=== PATIENT | female | born 1985 | race Caucasian/White ===

== ENCOUNTER 2020-07-23 06:50 | Inpatient (IN) | payer OTHER ==
[2020-07-23] MEDS ORDERED: MAGNESIUM 4GM/H20 - 4 GM/100 ML IVPB IVPB ONE (07:35)
[2020-07-23] MEDS ORDERED: MAGNESIUM SULFATE 20GM/500ML - 20 GM/500 ML INFUS.BAG ONE (07:35)
[2020-07-23] MEDS ORDERED: DEXTROSE 5%-LACTATED RINGERS 1,000 ML IV SCH (07:45)
[2020-07-23] MEDS ORDERED: MAGNESIUM 4GM/H20 - 4 GM/100 ML IVPB IVPB SCH (07:45)
[2020-07-23] MEDS ORDERED: MAGNESIUM SULFATE 20GM/500ML - 20 GM/500 ML INFUS.BAG IVPB SCH (07:45)
[2020-07-23] MEDS ORDERED: ACETAMINOPHEN 1000 MG/100 ML VIAL (NON FORMULARY) IVPB PRN (07:46)
[2020-07-23] MEDS ORDERED: AMPICILLIN - 2 GM in SODIUM CHLORIDE 100 ML IVPB ONE (07:47)
[2020-07-23] MEDS ORDERED: AMPICILLIN SODIUM 2 GM VIAL ONE (08:00)
[2020-07-23 08:17] VITALS: BMI 30.9
[2020-07-23 09:10] LABS: BASO % 0.1 % (0-2.0); EOS % 0.1 % (0-4.5); HEMATOCRIT 31.8 % (32.4-45.2); HEMOGLOBIN 10.5 GM/dL (10.7-15.3); LYMPH % 5.7 % (8-40); MCH 29.4 pg (25.7-33.7); MEAN CELL VOLUME 89.2 fl (80-96); MONO % 3.7 % (3.8-10.2); NEUT % 90.4 % (42.8-82.8); PLATELET COUNT 352 K/MM3 (134-434); RBC 3.57 M/mm3 (3.60-5.2); RDW 13.1 % (11.6-15.6); WHITE BLOOD COUNT 17.3 K/mm3 (4.0-10.0)
[2020-07-23 09:18] LABS: INR 0.97 (0.83-1.09)
[2020-07-23 09:22] LABS: ACTIVATED PTT 30.1 SECONDS (25.2-36.5)
[2020-07-23 09:32] LABS: POTASSIUM 3.5 mmol/L (3.5-5.1)
[2020-07-23 09:33] LABS: CALCIUM 8.4 mg/dL (8.5-10.1)
[2020-07-23 09:34] LABS: ALBUMIN 2.8 g/dl (3.4-5.0); BLOOD UREA NITROGEN 6.6 mg/dL (7-18)
[2020-07-23] MEDS ORDERED: ACETAMINOPHEN INJECTION 100 ML IVPB ONE (09:34)
[2020-07-23 09:37] LABS: CREATININE 0.5 mg/dL (0.55-1.3)
[2020-07-23 09:39] LABS: BILIRUBIN,TOTAL 0.6 mg/dL (0.2-1); TOT PROT 6.8 g/dl (6.4-8.2)
[2020-07-23 10:15] LABS: PH,URINE 5.5 (5.0-8.0); URINE APPEARANCE CLEAR; URINE BILIRUBIN NEGATIVE (NEGATIVE); URINE COLOR YELLOW; URINE GLUCOSE (UA) NEGATIVE (NEGATIVE); URINE KETONE 4+ (NEGATIVE); URINE LEUK ESTERASE NEGATIVE (NEGATIVE); URINE NITRITE NEGATIVE (NEGATIVE); URINE PROTEIN NEGATIVE (NEGATIVE); URINE UROBILINOGEN 0.2 mg/dL (0.2-1.0)
[2020-07-23] MEDS ORDERED: OXYTOCIN 20 UNITS in 0.9% NS 20 UNIT/1,000 ML INFUS.BAG IV ONE ×2 (10:57→13:07)
[2020-07-23 10:58] LABS: HIV INTERPRETATION NEGATIVE (NEGATIVE)
[2020-07-23] MEDS ORDERED: BUTORPHANOL TARTRATE 2 MG/ML VIAL ONE (11:02)
[2020-07-23] MEDS ORDERED: PROMETHAZINE HCL 25 MG/1 ML VIAL ONE (11:02)
[2020-07-23] MEDS: OXYTOCIN 20 UNITS in 0.9% NS 20 UNIT/1,000 ML INFUS.BAG IV SCH ×2 (11:15→13:30)
[2020-07-23] MEDS ORDERED: AMPICILLIN - 1 GM in SODIUM CHLORIDE 100 ML IVPB SCH (11:45)
[2020-07-23] MEDS ORDERED: BENZOCAINE 20% 57 GM BOTTLE TP PRN ×2 (14:31→14:39)
[2020-07-23] MEDS ORDERED: IBUPROFEN 600 MG TABLET (FP) PO PRN ×2 (14:31→14:39)
[2020-07-23] MEDS ORDERED: BENZOCAINE 28 GM HEMORRHOIDAL OINTMENT TP PRN ×2 (14:31→14:39)
[2020-07-23] MEDS ORDERED: ACETAMINOPHEN 325 MG TABLET (FP) PO PRN ×2 (14:31→14:39)
[2020-07-23] MEDS ORDERED: WITCH HAZEL 50% (TUCKS) 40 PAD/JAR PAD TP PRN ×2 (14:31→14:39)
[2020-07-23] MEDS ORDERED: BISACODYL 10 MG SUPP.RECT RC PRN ×2 (14:31→14:39)
[2020-07-23] MEDS ORDERED: METHYLERGONOVINE MALEATE 0.2 MG/1 ML AMP IM PRN ×2 (14:31→14:39)
[2020-07-23] MEDS ORDERED: PROMETHAZINE HCL 25 MG/1 ML VIAL IVPUSH ONE (15:19)
[2020-07-23] MEDS ORDERED: BUTORPHANOL TARTRATE 2 MG/ML VIAL IVPUSH ONE (15:19)
[2020-07-23] MEDS ORDERED: FERROUS SO4 325 MG TABLET (FP) PO SCH ×2 (17:30→22:00)
[2020-07-23 21:38] VITALS: BP 110/70; PULSE 98; TEMP 98.3
[2020-07-24] MEDS ORDERED: PRENATAL VITAMINS W/ FOLIC ACID TABLET (FP) PO SCH ×2 (10:00)
[2020-07-24] MEDS ORDERED: SENNOSIDES/DOCUSATE COMBO (SENNA PLUS) TABLET (UD) PO PRN ×2 (22:00)
== END 2020-07-23 21:00 | disposition home or self-care (01) | DRG 807 ==
LOC: JDEL 06:50 → JLDR 07:24 → J3W 16:55
PROVIDERS: ADMIT Obstetrics & Gynecology; ATTEND Obstetrics & Gynecology
PROC: 10E0XZZ Delivery of Products of Conception, External Approach (ICD-10-PCS; principal; 2020-07-23)
DX: O60.12X0 Preterm labor second trimester with preterm delivery second trimester, not applicable or unspecified (principal); Z37.1 Single stillbirth; O34.12 Maternal care for benign tumor of corpus uteri, second trimester; D25.1 Intramural leiomyoma of uterus; Z3A.21 21 weeks gestation of pregnancy
CPT/HCPCS: 36415; 59409; 76856-TC; 80053; 81003; 83735; 85025; 85610; 85730; 86780; 86850; 86900; 86901; 87086; 87389; C9803; J0131; U0003

== ENCOUNTER 2020-08-25 04:15 | Day surgery (SDC) | payer OTHER ==
[2020-08-20 11:55] VITALS: BMI 30.3
[2020-08-25] MEDS ORDERED: PROPOFOL 20 ML ONE ×2 (07:19→08:26)
[2020-08-25] MEDS ORDERED: MIDAZOLAM HCL 2 MG/2 ML SINGLE DOSE VIAL ONE (07:19)
[2020-08-25] MEDS ORDERED: DEXAMETHASONE SOD PHOSPHATE 4 MG/1 ML VIAL ONE (07:21)
[2020-08-25] MEDS ORDERED: LIDOCAINE HCL/PF 2% SDV 5ML VIAL ONE (07:21)
[2020-08-25] MEDS ORDERED: ONDANSETRON 4 MG/2 ML VIAL ONE ×2 (07:21→09:05)
[2020-08-25] MEDS ORDERED: ceFAZolin SODIUM 1 GM VIAL IVPB ONE (08:05)
[2020-08-25] MEDS ORDERED: ceFAZolin SODIUM 1 GM VIAL ONE (08:05)
[2020-08-25] MEDS ORDERED: SUCCINYLCHOLINE CHLORIDE 200 MG/10 ML SYRINGE ONE (08:46)
[2020-08-25] MEDS ORDERED: FAMOTIDINE 20 MG PREMIXED IVPB IVPB ONE (09:07)
[2020-08-25] MEDS ORDERED: FAMOTIDINE 20 MG/50 ML IVPB 20 MG/50 ML MG IVPB ONE ×2 (09:07→09:55)
[2020-08-25] MEDS ORDERED: ONDANSETRON 4 MG/2 ML VIAL IVPUSH PRN (09:42)
[2020-08-25] MEDS ORDERED: oxyCODONE HCL 5 MG TABLET PO PRN (09:42)
[2020-08-25] MEDS ORDERED: LACTATED RINGERS SOLUTION 1,000 ML IV SCH (09:45)
[2020-08-25 10:56] LABS: BASO % 0.5 % (0-2.0); EOS % 1.7 % (0-4.5); HEMATOCRIT 28.1 % (32.4-45.2); HEMOGLOBIN 9.2 GM/dL (10.7-15.3); MCH 27.4 pg (25.7-33.7); MCHC 32.5 g/dl (32.0-36.0); MEAN CELL VOLUME 84.1 fl (80-96); MEAN PLT VOLUME 8.1 fl (7.5-11.1); MONO % 3.2 % (3.8-10.2); NEUT % 75.6 % (42.8-82.8); PLATELET COUNT 287 K/MM3 (134-434); RBC 3.34 M/mm3 (3.60-5.2); RDW 15.1 % (11.6-15.6)
[2020-08-25 13:42] VITALS: BP 107/69; PULSE 60; TEMP 97.8
== END 2020-08-25 13:41 | disposition home or self-care (01) ==
LOC: JASU-SURG 04:15
PROVIDERS: ATTEND Obstetrics & Gynecology
PROC: 10D17ZZ Extraction of Products of Conception, Retained, Via Natural or Artificial Opening (ICD-10-PCS; principal; 2020-08-25 07:30)
DX: O90.89 Other complications of the puerperium, not elsewhere classified (principal); D25.9 Leiomyoma of uterus, unspecified; O72.2 Delayed and secondary postpartum hemorrhage
CPT/HCPCS: 36415; 76856-TC; 76998-TC; 85025; 86850; 86900; 86901; 88305-TC; 94760